=== PATIENT | female | born 1970 | race Caucasian/White ===

== ENCOUNTER 2018-11-27 16:58 | Emergency (ER) | payer OTHER ==
[2018-11-27 18:42] VITALS: BP 118/76
--- NOTE | 2018-11-27 19:22 | UC ---
General HPI - HPI Summary HPI Summary: nasal congestion and sore throat x 4 days. today, R eye red with discharge and itching. no contact use or visual disturbance and no pain. - History of Current Complaint Chief Complaint: UCEye Stated Complaint: EYE COMPLAINT Time Seen by Provider: 11/27/18 19:16 Hx Obtained From: Patient Hx Last Menstrual Period: 11/27/18 Onset/Duration: Gradual Onset Timing: Constant Pain Intensity: 0 Associated Signs & Symptoms: Positive: Cough. Negative: Fever, Headache - Allergy/Home Medications Allergies/Adverse Reactions: Allergies Allergy/AdvReac Type Severity Reaction Status Date / Time meperidine [From Demerol] AdvReac GI Verified 11/27/18 18:42 Home Medications: Home Medications Levothyroxine TAB* [Synthroid TAB*] 137 mcg PO 0800 11/27/18 [History Confirmed 11/27/18] PMH/Surg Hx/FS Hx/Imm Hx Endocrine History: Thyroid Disease - Surgical History Surgical History: Yes Surgery Procedure, Year, and Place: thyroidectomy. appy - Family History Known Family History: Positive: Non-Contributory - Social History Lives: With Family Alcohol Use: Occasionally Substance Use Type: None Smoking Status (MU): Never Smoked Tobacco Review of Systems All Other Systems Reviewed And Are Negative: Yes Eyes: Positive: Drainage, Eye Redness. Negative: Blurred Vision, Diplopia, Photophobia ENT: Positive: Sore Throat, Nasal Discharge Respiratory: Positive: Cough Physical Exam Triage Information Reviewed: Yes Appearance: Well-Appearing Vital Signs: Initial Vital Signs Temp 97.8 F 11/27/18 18:35 Pulse 80 11/27/18 18:35 Resp 16 11/27/18 18:35 BP 118/76 11/27/18 18:35 Pulse Ox 100 11/27/18 18:35 Eyes: Positive: Conjunctiva Clear - L, Conjunctiva Inflamed - R with crusting, Other: - No periorbital edema or rash. no auricular adenoapthy. PERRL, EOMI. ENT: Positive: Pharynx normal, Nasal congestion, Nasal drainage - clear, TMs normal Neck: Positive: Supple, Nontender, No Lymphadenopathy Respiratory: Positive: Lungs clear, Normal breath sounds, No respiratory distress Cardiovascular: Positive: RRR, No Murmur Abdomen Description: Positive: Nontender, No Organomegaly, Soft Bowel Sounds: Positive: Present Musculoskeletal: Positive: ROM Intact Neurological: Positive: Alert Psychological: Positive: Age Appropriate Behavior Skin Exam: Normal Skin: Negative: Rashes Course/Dx - Course Course Of Treatment: rapid strep=neg - Diagnoses Provider Diagnosis: URI (upper respiratory infection), Conjunctivitis Discharge - Sign-Out/Discharge Documenting (check all that apply): Patient Departure All imaging exams completed and their final reports reviewed: No Studies - Discharge Plan Condition: Stable Disposition: HOME Prescriptions: Polymyx/Trimethoprim OPTH* [Polytrim OPHTH*] 1 drop RIGHT EYE Q3H 7 Days #1 btl Patient Education Materials: Upper Respiratory Infection (DC), Conjunctivitis ( ED) Referrals: Aurora Winslow MD [Primary Care Provider] - 7 Days - Billing Disposition and Condition Condition: STABLE Disposition: Home
== END 2018-11-27 19:45 | disposition home or self-care (01) ==
LOC: UCCORT 16:58
DX: J06.9 Acute upper respiratory infection, unspecified (principal); H10.9 Unspecified conjunctivitis; E07.9 Disorder of thyroid, unspecified; Z88.5 Allergy status to narcotic agent; Z79.899 Other long term (current) drug therapy
CPT/HCPCS: 87651; 99212; G0463

== ENCOUNTER 2019-07-22 19:10 | Emergency (ER) | payer OTHER ==
[2019-07-22 19:30] VITALS: BP 116/71
--- NOTE | 2019-07-22 20:04 | ED ---
Abdominal Pain/Female - HPI Summary HPI Summary: 49 yr old female with the complaint of a 7 days of left lower abdominal pain. She complains of pain in the left lower quadrant. No NVD. No urinary symptoms. She has been having her period for the past 5 days. Her pain is moderate, and worse with lifting things. She has no other complaints. She had a tubal ligation in the past. - History of Current Complaint Chief Complaint: UCAbdominalPain Stated Complaint: LT SIDE ABD PAIN X1 WK Time Seen by Provider: 07/22/19 19:52 Hx Last Menstrual Period: 07/17/19 Pain Intensity: 7 Allergies/Adverse Reactions: Allergies Allergy/AdvReac Type Severity Reaction Status Date / Time meperidine [From Demerol] AdvReac GI Verified 07/22/19 19:18 PMH/Surg Hx/FS Hx/Imm Hx Endocrine/Hematology History: Reports: Hx Thyroid Disease - Surgical History Surgery Procedure, Year, and Place: thyroidectomy. appy Infectious Disease History: Yes Infectious Disease History: Reports: Hx Shingles Denies: Traveled Outside the [place] in Last 30 Days - Family History Known Family History: Positive: Non-Contributory - Social History Occupation: Employed Full-time Alcohol Use: Occasionally Substance Use Type: Reports: None Smoking Status (MU): Never Smoked Tobacco Review of Systems Constitutional: Negative Positive: Abdominal Pain. Negative: Vomiting, Diarrhea, Nausea Negative: burning, dysuria, discharge, frequency, flank pain, hematuria, incontinence, pain, urgency All Other Systems Reviewed And Are Negative: Yes Physical Exam Triage Information Reviewed: Yes Vital Signs On Initial Exam: Initial Vitals Temp Pulse Resp BP Pulse Ox 98.8 F 75 18 116/71 100 07/22/19 19:19 07/22/19 19:19 07/22/19 19:19 07/22/19 19:19 07/22/19 19:19 Vital Signs Reviewed: Yes Appearance: Positive: Well-Appearing, No Pain Distress Skin: Positive: Warm, Skin Color Reflects Adequate Perfusion Head/Face: Positive: Normal Head/Face Inspection Eyes: Positive: EOMI Neck: Positive: Nontender Respiratory/Lung Sounds: Positive: Clear to Auscultation, Breath Sounds Present Cardiovascular: Positive: RRR. Negative: Murmur Abdomen Description: Negative: Distended Musculoskeletal: Positive: Strength/ROM Intact Neurological: Positive: Sensory/Motor Intact, Alert, Oriented to Person Place, Time, CN Intact II-III, Normal Gait, Speech Normal Psychiatric: Positive: Normal Diagnostics - Vital Signs Vital Signs Temp Pulse Resp BP Pulse Ox 07/22/19 19:19 98.8 F 75 18 116/71 100 - Laboratory Lab Statement: Any lab studies that have been ordered have been reviewed, and results considered in the medical decision making process. Abdominal Pain Fem Course/Dx - Course Course Of Treatment: 49 yr old with abdominal pain in left lower quadrant. She was offered ambulance transport to ER for further work up. 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 - Diagnoses Provider Diagnoses: Left lower quadrant abdominal pain Discharge ED - Sign-Out/Discharge Documenting (check all that apply): Patient Departure All imaging exams completed and their final reports reviewed: No Studies - Discharge Plan Condition: Good Disposition: HOME-RECOMMEND TO ED Patient Education Materials: Acute Abdominal Pain (ED) Referrals: Aurora Winslow MD [Primary Care Provider] - 2 Days Additional Instructions: YOU NEED TO GO TO THE ER NOW FOR FURTHER LABS AND WORK UP FOR YOUR ABDOMINAL PAIN. DO NOT DELAY. You have been offered and ambulance but state you will drive yourself. - Billing Disposition and Condition Condition: GOOD Disposition: Home-Recommend to ED
== END 2019-07-22 20:08 | disposition home health service (06) ==
LOC: UCCORT 19:10
DX: R10.32 Left lower quadrant pain (principal); Z88.5 Allergy status to narcotic agent
CPT/HCPCS: 99212; G0463

== ENCOUNTER 2019-12-30 12:13 | Emergency (ER) | payer OTHER ==
--- NOTE | 2019-12-30 12:23 | UC ---
FLU HPI - HPI Summary HPI Summary: Patient presents to urgent care report requesting testing for COVID-19. Patient states for approximately 2 weeks she's had sinus pressure right versus left maxillary area and frontal. Patient states she's had some nasal congestion with some green discharge. Patient states she's also had a slight cough that she relates to postnasal drip. Patient has not taken anything for this. Patient states this happens most brings and she just "ride it out". Patient states over the last 2 days she feels her symptoms have gotten worse. 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 Patient's concerned this could be something more and so she came to get checked. Patient has not taken anything to treat her symptoms. No analgesia or decongestant. Patient without any documented fever but states at times she has felt warm. No chills. No nausea or vomiting. No abdominal pain. No change of bowel or bladder. Patient states she is not . Patient does have a diagnosis of rheumatoid arthritis but is not currently on any medications to treat it. Patient is on no prescribed medications as reviewed in the EMR. - History of Current Complaint Stated Complaint: HEADACHE, CONGESTION Time Seen by Provider: 12/30/19 12:18 Hx Obtained From: Patient Hx Last Menstrual Period: 07/17/19 Severity Currently: Mild Severity Initially: Moderate Pain Scale Used: 0-10 Numeric - Allergy/Home Medications Allergies/Adverse Reactions: Allergies Allergy/AdvReac Type Severity Reaction Status Date / Time meperidine [From Demerol] AdvReac GI Verified 12/30/19 12:25 Home Medications: Home Medications Levothyroxine TAB* [Synthroid TAB*] 137 mcg PO 0800 11/27/18 [History Confirmed 12/30/19] Amoxicillin PO (*) [Amoxicillin 500 MG CAP*] 500 mg PO Q12H #20 cap 12/30/19 [Rx ] Fluticasone NASAL SPRAY 50MCG* [Flonase NASAL SPRAY 50MCG*] 2 spray BOTH NARES DAILY #1 btl 12/30/19 [Rx] PMH/Surg Hx/FS Hx/Imm Hx Previously Healthy: Yes - Surgical History Surgical History: Yes Surgery Procedure, Year, and Place: thyroidectomy. appy - Family History Known Family History: Positive: Non-Contributory - Social History Alcohol Use: Occasionally Substance Use Type: None Smoking Status (MU): Never Smoked Tobacco - no exposure, no vape Review of Systems All Other Systems Reviewed And Are Negative: Yes Constitutional: Positive: Fever - tactile, not measured ENT: Positive: Ear Ache - mild right ear discomfort, Nasal Discharge, Sinus Congestion, Sinus Pain/Tenderness. Negative: Sore Throat Respiratory: Positive: Cough - not productive, not SOB Cardiovascular: Positive: Negative Gastrointestinal: Positive: Negative Genitourinary: Positive: Negative Motor: Positive: Negative Neurovascular: Positive: Negative Musculoskeletal: Positive: Negative Neurological/Mental Status: Positive: Negative Psychological: Positive: Negative Is Patient Immunocompromised?: No - RA - not on medications Physical Exam - Summary Physical Exam Summary: Vital Signs Reviewed: Yes A+Ox3, no distress Eyes: Conjunctiva Clear, MANA. EOM intact and full ENT: Hearing grossly normal scant fluid right ear, no erythema, turbinates inflammed and boggy + PND, mild erythema throat, + TTP max sinuses with palp R>L , mmoist, uvula midline, no exudate, Neck: Positive: Supple Respiratory: Positive: No respiratory distress, No accessory muscle use + CTA throughout no w/r Cardiovascular: RRR nl s1, s2 no m/r CBT <2 sec abd soft + BS nt/nd no guarding, no distension Musculoskeletal Exam: HEARD x 4 without difficulty Strength Intact, ROM Intact Neurological: Positive: Alert, + sensation throughout Psychological: Positive: Normal Response To psychodramatist Skin: Positive: no rash, no ecchymosis Triage Information Reviewed: Yes Flu Course/Dx - Course Course Of Treatment: Patient presents to urgent care requesting testing for cold and 19. Patient with sinus congestion right ear pain for approximately 10 days. Patient states over the last 3 days symptoms have gotten worse. Patient states she has some fatigue tactile temperatures. Patient with sinus congestion postnasal drip and mild right ear pain. Patient has 2 coworkers with a positive COVID. On exam vital signs are stable. Patient does have exam consistent with sinusitis. Will start patient on antibiotics, flonase Will COVID test patient- sample collected by me full PPE Pt aware and comfortable with isolation precautions strict return precautions - Differential Dx/Diagnosis Provider Diagnosis: Sinusitis, COVID-19 Discharge ED - Sign-Out/Discharge Documenting (check all that apply): Patient Departure All imaging exams completed and their final reports reviewed: No Studies - Discharge Plan Condition: Stable Disposition: HOME Prescriptions: Amoxicillin PO (*) [Amoxicillin 500 MG CAP*] 500 mg PO Q12H #20 cap Fluticasone NASAL SPRAY 50MCG* [Flonase NASAL SPRAY 50MCG*] 2 spray BOTH NARES DAILY #1 btl Patient Education Materials: Rhinosinusitis (ED) Forms: COVID-19 Tested & Isolation Referrals: No Primary Care Phys,NOPCP [Primary Care Provider] - Additional Instructions: - Stay well hydrated. Drink plenty of non-alcoholic, non-caffinated beverages. - Okay to take Tylenol every 6 hours for pain or fever. Take with food. Do NOT take for more than 4-5 days. - These infections are spread by secretions - do NOT share eating or drinking utensils - clean items you share with other people such as cell phones, computer mouse, TV remote, computer tablets,etc. Once you have been antibiotics for 2 days, change your toothbrush and your pillowcase. - get plenty of restful sleep - humidify the air in the room where you sleep - boil water, run a hot steam shower, vaporizer, cups of water by heat register - okay to take over the counter decongestant and cough medication - use nasal spray as prescribed - contact your doctor or return with questions or concerns As discussed, you have been tested for COVID-19. Please follow the strict isolation guidelines as included in your paperwork. You should remain on isolation until you received a phone call with your test results from the [facility] Department. This may take 2-3 days. If you have any questions, please contact the Health Department. - Billing Disposition and Condition Condition: STABLE Disposition: Home
[2019-12-30 12:41] VITALS: BP 129/75
== END 2019-12-30 13:07 | disposition home or self-care (01) ==
LOC: UCCORT 12:13
DX: U07.1 COVID-19 (principal); J32.9 Chronic sinusitis, unspecified; Z88.5 Allergy status to narcotic agent
CPT/HCPCS: 87635; 99212; G0463; G2023